=== PATIENT | female | born 1985 ===

== ENCOUNTER → 2018-06-05 19:45 | Outpatient (CLI) | payer MEDICAID ==
[~2018-06-05 19:45] MED LIST: BUPRENORPHINE HC8 MG PO; PRENAVITE1 TAB PO; XANAX XR2 MG PO; ZOLOFT50 MG PO
[2018-06-05 20:37] LABS: HEMOGLOBIN 13.7 g/dL (12-16); MCH 31.4 pg (26.0-34.0); MCHC 34.3 g/dL (31.0-37.0); MCV 91.7 fL (80.0-100.0); MEAN PLATELET VOLUME 11.2 fL (7.4-10.4); RBC 4.36 10x6/uL (4.00-5.40); RDW 12.7 % (11.5-14.5); WBC 9.6 10x3/uL (4.8-10.8)
[2018-06-05 20:39] LABS: UDS - AMPHET NEGATIVE QUAL (NEGATIVE); UDS - BARB NEGATIVE QUAL (NEGATIVE); UDS - BENZO POSITIVE QUAL (NEGATIVE); UDS - COCAINE NEGATIVE QUAL (NEGATIVE); UDS - OPIATE NEGATIVE QUAL (NEGATIVE); UDS - PCP NEGATIVE QUAL (NEGATIVE); UDS - THC NEGATIVE QUAL (NEGATIVE)
[2018-06-08 12:10] LABS: HGB SOLUBILITY (SICKLE SCREEN) Negative (Negative)
[2018-06-08 15:15] LABS: RUBELLA IGG 2.62 index (Immune >0.99)
[2018-06-09 03:09] LABS: RAPID PLASMA REAGIN Non Reactive (Non Reactive)
[2018-06-09 04:14] LABS: HEPATITIS C ANTIBODY 2.7 S/CO RAT (0.0-0.9)
== END | disposition home or self-care (01) ==
LOC: D.LDO 19:45
PROVIDERS: Obstetrics & Gynecology
DX: O26.893 Other specified pregnancy related conditions, third trimester (principal); Z3A.00 Weeks of gestation of pregnancy not specified

== ENCOUNTER 2018-06-06 01:09 | Inpatient (IN) | payer MEDICAID ==
[~2018-06-06] VITALS: Ht 160 cm; Wt 120.2 kg
[2018-06-06] VITALS (22 sets, daily range): BP systolic 115–173; BP diastolic 64–105
--- NOTE | ~2018-06-06 | MORECARE ---
CASE MANAGEMENT DISCHARGE SUMMARY PATIENT: MOIRA LOGAN UNIT: [id number] ADM DATE: 06/06/18 AGE: 33 : [birth year] SEX: F ROOM/BED: D.2306 AUTHOR: NIKOLAI BERNSTEIN PHYSICIAN: REFERRING PHYSICIAN: RIVAS RINCON MD DATE OF SERVICE: 06/08/18 Discharge Plan Patient Name: MOIRA LOGAN [facility] : 1985 Planned Disposition: Anticipated Discharge Date: Discharge Date: Expected LOS: Initial Reviewer: [email or web address] Initial Review Date: 06/08/2018 Generated: 06/08/18 3:25 pm Patient Name: MOIRA LOGAN Page [id number] at 1425 All edits/amendments must be made on the electronic document DICTATION DATE: 06/08/18 142 HAND WINDER: JUDY 06/08/18 1425 RPT#: [id number] DC DATE: STATUS: ADM IN [facility] [address] [place] [address] END OF REPORT
--- NOTE | ~2018-06-06 | OP ---
PATIENT NAME: MOIRA LOGAN MEDICAL RECORD: [id number] :87 LOCATION:D[facility] D.2306 ADMISSION DATE:06/06/18 SURGEON: GRAYSON RINCON MD DATE OF OPERATION: 06/06/2018 PREOPERATIVE DIAGNOSES: 1. Spontaneous rupture of membrane at 37 weeks and 4 days. 2. Prolapsed cord. 3. Noncompliance. 4. Obesity. 5. Smoking. POSTOPERATIVE DIAGNOSES: 1. Spontaneous rupture of membrane at 37 weeks and 4 days. 2. Prolapsed cord. 3. Noncompliance. 4. Obesity. 5. Smoking. 6. Breech presentation. 7. Hypoxia. PROCEDURE: section with breech extraction. SURGEON: Grayson Rincon MD WINE MANAGER: Sylvester Walsh. ANESTHESIA: General. FINDINGS: Viable female in the breech presentation, Apgars were 8 and 9, weight 6 pounds 1 ounce. Uterus, ovaries, and tubes were unremarkable. SPECIMENS REMOVED: Placenta. SPECIMEN DISPOSITION: Discarded. ESTIMATED BLOOD LOSS: 800 cc. FLUIDS: 1700 cc lactated Ringer's. URINE OUTPUT: 700 cc of clear urine (cath placed post-procedure). DRAINS: Posey to gravity. COMPLICATIONS: Hypoxia. INDICATIONS: The patient is a 33-year-old G4, para 1-2-0-3 at 37 weeks and 4 days by her history of an EDC of 06/20/2018, who presented to triage with complaints of rupture of membrane. The patient was evaluated and found to have prolapsing cord. The patient was verbally consented and urgently placed in the operating room for stat . The patient's history complicated by anxiety with 2 mg of Xanax used q.6 hours and use of Suboxone. DESCRIPTION OF PROCEDURE: After verbal consent was given, the patient was taken to the operating room where rapid sequence induction anesthetic was obtained. OPERATIVE REPORT [id number] MOIRA LOGAN The patient has been prepped prior to this and a low transverse incision was made on the abdomen upon release from anesthesia. This incision was carried down to the underlying layer of the fascia and the abdomen was opened using a Pelosi technique. The bladder blade was placed into the lower pelvis. A low transverse hysterotomy was performed and the infant was delivered onto the abdomen. Cord was doubly clamped and cut and the infant was passed to the attendant. The placenta was delivered via Crede maneuver. Uterus exteriorized, cleared of all clot and debris and closed with a running lock stitch of Vicryl. A chromic stitch was used to obtain hemostasis at the right corner with the nvshtw-ak-gnncd. The uterus was returned to the abdomen. The pelvis was irrigated and irrigant removed. The count after the procedure began confirms all sponges accounted for and the fascia was closed prior to the x-ray being performed. The subcutaneous tissue is inspected, 2 large vessels were encountered and both were controlled with a stitch. The subcutaneous space is now reapproximated with plain gut and the skin reapproximated with pallavi. Sterile dressing is applied. X-ray is performed with initial pipe fitter maintenance looking pipe fitter maintenance film without any presence of foreign body. Official read confirms no retained sponges or instruments. The patient did have hypoxia during the procedure with a pulse ox as low as 87%. The patient did receive albuterol and terbutaline during the procedure and the sats after the completion of the procedure were back up to acceptable ranges. The patient will be transferred to the ICU and pulmonary consult has been obtained. TRANSINT:[id number] Voice Confirmation ID: [id number] DOCUMENT ID: [id number] GRAYSON RINCON MD at 1039 CC: [id number] DICTATION DATE: 06/06/18342 CHILDREN'S TUTOR: 06/06/18 0448 ADM IN [facility] [address] [place] [address]
--- NOTE | ~2018-06-06 | MORECARE ---
CASE MANAGEMENT DISCHARGE SUMMARY PATIENT: MOIRA LOGAN UNIT: [id number] ADM DATE: 06/06/18 AGE: 33 : 86 SEX: F ROOM/BED: D.2306 AUTHOR: NIKOLAI BERNSTEIN PHYSICIAN: REFERRING PHYSICIAN: RIVAS RINCON MD DATE OF SERVICE: 06/08/18 Discharge Plan Patient Name: MOIRA LOGAN Facility: [facility]:[place] : 1985 Planned Disposition: Home Anticipated Discharge Date: Discharge Date: Expected LOS: Initial Reviewer: [email or web address] Initial Review Date: 06/08/2018 Generated: 06/08/18 6:37 pm Comments DCP- Discharge Planning Updated by [email or web address]: Jerri Chaudhari on 06/08/18 1:[address] CM attempted to visit with patient for discharge planning. Patient is currently on vent and sedated. No contacts listed on face sheet. No family available. CM will continue to follow and assist with discharge planning / needs. DCPIA - Discharge Planning Initial Assessment Updated by [email or web address]: Jerri Chaudhari on 06/08/18 5:31 pm * Is the patient Alert and Oriented? No * PCP DR. BROOKS IN [place] * Pharmacy [facility] * Preadmission Environment Home with Family * ADLs Independent * Equipment None * List name and contact numbers for known caregivers / representatives who currently or will assist patient after discharge: GERMAN PIERCE [facility] [phone] ZELALEM AWAIS [facility] [phone] * Verbal permission to speak to the caregivers and representatives has been obtained from the patient. N/A * Community resources currently utilized None * Additional services required to return to the preadmission environment? No * Can the patient safely return to the preadmission environment? Yes * Has this patient been hospitalized within the prior 30 days at any hospital? No Last DP export: 06/08/18 4:30 Patient Name: MOIRA LOGAN Page [id number] at 1739 All edits/amendments must be made on the electronic document DICTATION DATE: 06/08/18 173 A P MECHANIC: JUDY 06/08/18 1737 RPT#: [id number] DC DATE: STATUS: ADM IN [facility] [address] [place] [address] END OF REPORT
--- NOTE | ~2018-06-06 | MORECARE ---
CASE MANAGEMENT DISCHARGE SUMMARY PATIENT: MOIRA LOGAN UNIT: [id number] ADM DATE: 06/06/18 AGE: 33 : 86 SEX: F ROOM/BED: D.1205 AUTHOR: DAY,DOC PHYSICIAN: REFERRING PHYSICIAN: GRAYSON RINCON MD DATE OF SERVICE: 06/15/18 Discharge Plan Patient Name: MOIRA LOGAN Facility: [facility]:[place] : 1985 Planned Disposition: Home Anticipated Discharge Date: Discharge Date: 06/12/2018 Expected LOS: Initial Reviewer: [email or web address] Initial Review Date: 06/08/2018 Generated: 06/15/18 11:22 am Comments DCP- Discharge Planning Updated by [email or web address]: Jerri Chaudhari on 06/08/18 4:[address] Patient Name: MOIRA LOGAN Admission Status: Elective Accout number: [id number] Admission Date: 06-06-2018 : 1985 Admission Diagnosis: Attending: Grayson Rincon Current LOS: 2 Anticipated DC Date: Planned Disposition: Home Primary Insurance: MEDICAID [place] Discharge Planning Comments: CM MET WITH PATIENT FATHER, GERMAN PIERCE AND ZELALEM ERNANDEZ THE FOB. PATIENT IS CURRENTLY ON VENT AND SEDATED AT THIS TIME. FAMILY WAS ABLE TO ANSWER HEALTHCARE QUESTIONS. CM WILL TRY TO GET INFORMATION REGARDING PATIENT HISTORY FROM HER PCP AND GET MEDICATION LIST. PLAN IS FOR PATIENT TO GO HOME WITH FOB AND INFANT AT DISCHARGE. CM WILL CONTINUE TO FOLLOW AND ASSIST WITH DISCHARGE PLANNING / NEEDS. Shoemaker Custom: Jerri Chaudhari DCP- Discharge Planning Updated by [email or web address]: Jerri Chaudhari on 06/08/18 1:[address] CM attempted to visit with patient for discharge planning. Patient is currently on vent and sedated. No contacts listed on face sheet. No family available. CM will continue to follow and assist with discharge planning / needs. DCPIA - Discharge Planning Initial Assessment Updated by [email or web address]: Jerri Chaudhari on 06/08/18 5:31 pm * Is the patient Alert and Oriented? No * PCP DR. BROOKS IN [place] * Pharmacy [facility] * Preadmission Environment Home with Family * ADLs Independent * Equipment None * List name and contact numbers for known caregivers / representatives who currently or will assist patient after discharge: GERMAN PIERCE - [facility] - [phone] ZELALEM ERNANDEZ FOB [phone] * Verbal permission to speak to the caregivers and representatives has been obtained from the patient. N/A * Community resources currently utilized None * Additional services required to return to the preadmission environment? No * Can the patient safely return to the preadmission environment? Yes * Has this patient been hospitalized within the prior 30 days at any hospital? No Last DP export: 06/08/18 4:52 Patient Name: MOIRA LOGAN Page 17241 at 1022 All edits/amendments must be made on the electronic document DICTATION DATE: 06/15/18 1022 MIX HOUSE OPERATOR: JUDY 06/15/18 1022 RPT#: [id number] DC DATE:06/12/18 STATUS: DIS IN [facility] [address] [place] [address] END OF REPORT
--- NOTE | ~2018-06-06 | MORECARE ---
CASE MANAGEMENT DISCHARGE SUMMARY PATIENT: MOIRA LOGAN UNIT: [id number] ADM DATE: 06/06/18 AGE: 33 : [birth year] SEX: F ROOM/BED: D.2306 AUTHOR: NIKOLAI BERNSTEIN PHYSICIAN: REFERRING PHYSICIAN: RIVAS RINCON MD DATE OF SERVICE: 06/08/18 Discharge Plan Patient Name: MOIRA LOGAN Facility: [facility]:[place] : 1985 Planned Disposition: Anticipated Discharge Date: Discharge Date: Expected LOS: Initial Reviewer: [email or web address] Initial Review Date: 06/08/2018 Generated: 06/08/18 3:33 pm Comments DCP- Discharge Planning Updated by [email or web address]: Jerri Chaudhari on 06/08/18 1:[address] CM attempted to visit with patient for discharge planning. Patient is currently on vent and sedated. No contacts listed on face sheet. No family available. CM will continue to follow and assist with discharge planning / needs. Last DP export: 06/08/18 1:25 Patient Name: MOIRA LOGAN Page 50115 at 1433 All edits/amendments must be made on the electronic document DICTATION DATE: 06/08/181431 AUTO DAMAGE ADJUSTER: JUDY 06/08/181431 RPT#: [id number] DC DATE: STATUS: ADM IN [facility] [address] [place] [address] END OF REPORT
--- NOTE | ~2018-06-06 | MORECARE ---
CASE MANAGEMENT DISCHARGE SUMMARY PATIENT: MOIRA LOGAN UNIT: [id number] ADM DATE: 06/06/18 AGE: 33 : [birth year] SEX: F ROOM/BED: D.2306 AUTHOR: DAY,DOC PHYSICIAN: REFERRING PHYSICIAN: GRAYSON RINCON MD DATE OF SERVICE: 06/08/18 Discharge Plan Patient Name: MOIRA LOGAN Facility: [facility]:[place] : 1985 Planned Disposition: Home Anticipated Discharge Date: Discharge Date: Expected LOS: Initial Reviewer: [email or web address] Initial Review Date: 06/08/2018 Generated: 06/08/18 6:52 pm Comments DCP- Discharge Planning Updated by [email or web address]: Jerri Chaudhari on 06/08/18 4:[address] Patient Name: MOIRA LOGAN Admission Status: Elective Accout number: [id number] Admission Date: 06-06-2018 : 1985 Admission Diagnosis: Attending: Grayson Rincon Current LOS: 2 Anticipated DC Date: Planned Disposition: Home Primary Insurance: MEDICAID [place] Discharge Planning Comments: CM MET WITH PATIENT FATHER, GERMAN PIERCE AND ZELALEM ERNANDEZ THE FOB. PATIENT IS CURRENTLY ON VENT AND SEDATED AT THIS TIME. FAMILY WAS ABLE TO ANSWER HEALTHCARE QUESTIONS. CM WILL TRY TO GET INFORMATION REGARDING PATIENT HISTORY FROM HER PCP AND GET MEDICATION LIST. PLAN IS FOR PATIENT TO GO HOME WITH FOB AND AT DISCHARGE. CM WILL CONTINUE TO FOLLOW AND ASSIST WITH DISCHARGE PLANNING / NEEDS. Hospital Orderly: Jerri Chaudhari DCP- Discharge Planning Updated by [email or web address]: Jerri Chaudhari on 06/08/18 1:[address] CM attempted to visit with patient for discharge planning. Patient is currently on vent and sedated. No contacts listed on face sheet. No family available. CM will continue to follow and assist with discharge planning / needs. DCPIA - Discharge Planning Initial Assessment Updated by [email or web address]: Jerri Chaudhari on 06/08/18 5:31 pm * Is the patient Alert and Oriented? No * PCP DR. BROOKS IN [place] * Pharmacy [facility] * Preadmission Environment Home with Family * ADLs Independent * Equipment None * List name and contact numbers for known caregivers / representatives who currently or will assist patient after discharge: GERMAN PIERCE - FATHER - [phone] ZELALEM ERNANDEZ FOB [phone] * Verbal permission to speak to the caregivers and representatives has been obtained from the patient. N/A * Community resources currently utilized None * Additional services required to return to the preadmission environment? No * Can the patient safely return to the preadmission environment? Yes * Has this patient been hospitalized within the prior 30 days at any hospital? No Last DP export: 06/08/18 4:37 Patient Name: MOIRA LOGAN Page [phone] at 1752 All edits/amendments must be made on the electronic document DICTATION DATE: 06/08/181750 TRAFFIC CONTROL OPERATOR: JUDY 06/08/181750 RPT#: [id number] DC DATE: STATUS: ADM IN [facility] [address] [place] [address] END OF REPORT
--- NOTE | ~2018-06-06 | MORECARE ---
CASE MANAGEMENT DISCHARGE SUMMARY PATIENT: MOIRA LOGAN UNIT: [id number] ADM DATE: 06/06/18 AGE: 33 : [birth year] SEX: F ROOM/BED: D.2306 AUTHOR: NIKOLAI BERNSTEIN PHYSICIAN: REFERRING PHYSICIAN: RIVAS RINCON MD DATE OF SERVICE: 06/08/18 Discharge Plan Patient Name: MOIRA LOGAN Facility: [facility]:[place] : 1985 Planned Disposition: Home Anticipated Discharge Date: Discharge Date: Expected LOS: Initial Reviewer: [email or web address] Initial Review Date: 06/08/2018 Generated: 06/08/18 6:30 pm Comments DCP- Discharge Planning Updated by [email or web address]: Jerri Chaudhari on 06/08/18 1:[address] CM attempted to visit with patient for discharge planning. Patient is currently on vent and sedated. No contacts listed on face sheet. No family available. CM will continue to follow and assist with discharge planning / needs. Last DP export: 06/08/18 1:33 Patient Name: MOIRA LOGAN Page 95970 at 1730 All edits/amendments must be made on the electronic document DICTATION DATE: 06/08/181728 GAMING CAGE WORKER: JUDY 06/08/181728 RPT#: [id number] DC DATE: STATUS: ADM IN [facility] [address] [place] [address] END OF REPORT
--- NOTE | ~2018-06-06 | DS ---
PATIENT:MOIRA LOGAN :[birth year] MEDICAL RECORD: [id number] DISCHARGE SUMMARY ADMISSION DATE: 06/06/18 DISCHARGE DATE: 06/12/18 DATE OF ADMISSION: 06/06/2018 DATE OF DISCHARGE: 06/12/2018 ADMISSION DIAGNOSES: 1. Morbid obesity. 2. History of drug addiction. 3. Poor care. 4. Spontaneous rupture of membrane at 37 weeks with cord prolapse. DISCHARGE DIAGNOSES: 1. Morbid obesity. 2. History of drug addiction. 3. Poor care. 4. Spontaneous rupture of membrane at 37 weeks with cord prolapse. 5. Breech presentation. 6. Pneumonia. 7. Anxiety. PROCEDURE PERFORMED WHILE HOSPITALIZED: Primary low transverse section with breech extraction. ADMITTING PHYSICIAN: Dr. Phillips. CONSULTS: Pulmonary medicine. HISTORY OF PRESENT ILLNESS AND INDICATION FOR HOSPITALIZATION: See the H&P in the chart. SUMMARY OF HOSPITALIZATION: The patient was admitted the territory sales representative hours of the and underwent emergency . Infant was delivered, viable, and sent to nursery. During that procedure and after rapid sequence induction was completed, her pulse oximetries were noted to be in the upper 80s. The patient was able to obtain a near 100% oxygenation after aggressive respiratory treatment by anesthesia. Pulmonary medicine was consulted and the patient had been sent to the ICU. The patient was diagnosed with pneumonia and remained intubated for the course of the first 4 days in the hospital. The patient was extubated and eventually sent to the floor. At the time of discharge, the incision was clean, dry and intact. There is no obstetrical or postoperative concerns. DISPOSITION: The patient will be discharged on medicines per pulmonary consultation and pain management through OB. The pain medications include Percocet and ibuprofen. The patient does have a history of anxiety and I have given enough medicine to last until Friday until primary care physician has been prescribing Xanax and Subutex for this patient and a [place] period can be reached. TRANSINT:[id number] Voice Confirmation ID: [id number] DOCUMENT ID: [id number] DISCHARGE SUMMARY REPORT [id number] MOIRA LOGAN,RIVAS Ling MD at 1038 CC: [id number] DICTATION DATE: 06/12/18 1507 OPTICAL LABORATORY MECHANIC: 06/13/18 0500 DIS IN 06/12/18 [facility] [address] [facility] [place] [address]
[2018-06-06 09:09] LABS: BASOPHILS 0.1 % (0-2); EOSINOPHILS 0.1 % (0-7); HEMATOCRIT 33.3 % (36.0-48.0); HEMOGLOBIN 11.2 g/dL (12-16); IMMATURE GRANULOCYTES 0.2 % (0-5); LYMPHOCYTES 12.7 % (15-50); MCH 30.6 pg (26.0-34.0); MCHC 33.6 g/dL (31.0-37.0); MEAN PLATELET VOLUME 10.3 fL (7.4-10.4); MONOCYTES 7.9 % (2-11); PLATELET COUNT 197 10x3/uL (130-400); RBC 3.66 10x6/uL (4.00-5.40)
[2018-06-06 09:12] LABS: WBC 12.2 10x3/uL (4.8-10.8)
[2018-06-06 09:28] LABS: ALBUMIN 1.7 g/dL (3.4-5.0); ALKALINE PHOSPHATASE 96 U/L (46-116); ALT (SGPT) 12 U/L (10-68); BILIRUBIN - TOTAL 0.18 mg/dL (0.2-1.3); CALC OSMOLALITY 273 mosm/kg (275-300); CALCIUM 8.1 mg/dL (8.5-10.1); CHLORIDE - SERUM 104 mmol/L (98-107); CREATININE - SERUM 0.5 mg/dL (0.6-1.3); GLUCOSE 102 mg/dL (74-106); MAGNESIUM - SERUM 1.2 mg/dL (1.8-2.4); PHOSPHOROUS 3.5 mg/dL (2.5-4.9); POTASSIUM - SERUM 4.2 mmol/L (3.5-5.1); PROTEIN - SERUM 5.5 g/dL (6.4-8.2); SODIUM 136 mmol/L (136-145); UREA NITROGEN 17 mg/dL (7-18); eGFR NON AFRICAN AMERICAN > 90 mL/min (90-120)
[2018-06-06 09:29] LABS: PRO BNP 5 pg/mL (0-125)
[2018-06-07] VITALS (24 sets, daily range): BP systolic 98–143; BP diastolic 56–95
[2018-06-07 03:13] LABS: BASOPHILS 0.1 % (0-2); EOSINOPHILS 0.7 % (0-7); HEMOGLOBIN 9.8 g/dL (12-16); IMMATURE GRANULOCYTES 0.1 % (0-5); LYMPHOCYTES 23.6 % (15-50); MCH 30.8 pg (26.0-34.0); MCHC 33.8 g/dL (31.0-37.0); MCV 91.2 fL (80.0-100.0); MEAN PLATELET VOLUME 10.6 fL (7.4-10.4); MONOCYTES 8.8 % (2-11); NEUTROPHILS 66.7 % (40-80); PLATELET COUNT 161 10x3/uL (130-400); RBC 3.18 10x6/uL (4.00-5.40); RDW 13.1 % (11.5-14.5)
[2018-06-07 03:19] LABS: WBC 8.3 10x3/uL (4.8-10.8)
[2018-06-07 03:26] LABS: UDS - AMPHET NEGATIVE QUAL (NEGATIVE); UDS - BARB NEGATIVE QUAL (NEGATIVE); UDS - BENZO POSITIVE QUAL (NEGATIVE); UDS - COCAINE NEGATIVE QUAL (NEGATIVE); UDS - OPIATE POSITIVE QUAL (NEGATIVE); UDS - PCP NEGATIVE QUAL (NEGATIVE); UDS - THC NEGATIVE QUAL (NEGATIVE)
[2018-06-08] VITALS (24 sets, daily range): BP systolic 86–138; BP diastolic 41–90; Ht 160 cm; Wt 120.2 kg
[2018-06-08 03:38] LABS: BASOPHILS 0.1 % (0-2); EOSINOPHILS 0 % (0-7); HEMATOCRIT 25.9 % (36.0-48.0); HEMOGLOBIN 8.6 g/dL (12-16); IMMATURE GRANULOCYTES 0.3 % (0-5); LYMPHOCYTES 7.9 % (15-50); MCH 30.3 pg (26.0-34.0); MCHC 33.2 g/dL (31.0-37.0); MCV 91.2 fL (80.0-100.0); MEAN PLATELET VOLUME 10.4 fL (7.4-10.4); MONOCYTES 3.8 % (2-11); NEUTROPHILS 87.9 % (40-80); PLATELET COUNT 185 10x3/uL (130-400); RBC 2.84 10x6/uL (4.00-5.40); RDW 13.3 % (11.5-14.5); WBC 9.4 10x3/uL (4.8-10.8)
[2018-06-09] VITALS (24 sets, daily range): BP systolic 88–132; BP diastolic 51–85
[2018-06-09 03:43] LABS: BASOPHILS 0.3 % (0-2); EOSINOPHILS 2.3 % (0-7); HEMATOCRIT 24.8 % (36.0-48.0); HEMOGLOBIN 8.1 g/dL (12-16); IMMATURE GRANULOCYTES 0.5 % (0-5); LYMPHOCYTES 25.3 % (15-50); MCH 30.2 pg (26.0-34.0); MCHC 32.7 g/dL (31.0-37.0); MCV 92.5 fL (80.0-100.0); MEAN PLATELET VOLUME 10.2 fL (7.4-10.4); MONOCYTES 6.1 % (2-11); NEUTROPHILS 65.5 % (40-80); PLATELET COUNT 197 10x3/uL (130-400); RBC 2.68 10x6/uL (4.00-5.40); RDW 13.8 % (11.5-14.5)
[2018-06-09 03:55] LABS: CALC OSMOLALITY 279 mosm/kg (275-300); CALCIUM 7.8 mg/dL (8.5-10.1); CARBON DIOXIDE 26.2 mmol/L (21.0-32.0); CHLORIDE - SERUM 105 mmol/L (98-107); CREATININE - SERUM 0.5 mg/dL (0.6-1.3); GLUCOSE 91 mg/dL (74-106); MAGNESIUM - SERUM 1.5 mg/dL (1.8-2.4); POTASSIUM - SERUM 3.5 mmol/L (3.5-5.1); SODIUM 141 mmol/L (136-145); UREA NITROGEN 10 mg/dL (7-18); eGFR NON AFRICAN AMERICAN > 90 mL/min (90-120)
[2018-06-09 07:25] LABS: IMMUNOGLOBULIN A 170 mg/dL (87-352)
[2018-06-09 15:33] LABS: ACID FAST SMEAR Negative (()); AFB SPECIMEN PROCESSING Concentration (())
[2018-06-10] VITALS (18 sets, daily range): BP systolic 93–168; BP diastolic 40–92
[2018-06-10 04:24] LABS: BASOPHILS 0.2 % (0-2); EOSINOPHILS 0.5 % (0-7); HEMATOCRIT 28.2 % (36.0-48.0); HEMOGLOBIN 9.5 g/dL (12-16); IMMATURE GRANULOCYTES 0.5 % (0-5); LYMPHOCYTES 8.5 % (15-50); MCH 30.9 pg (26.0-34.0); MCHC 33.7 g/dL (31.0-37.0); MCV 91.9 fL (80.0-100.0); MEAN PLATELET VOLUME 10.9 fL (7.4-10.4); MONOCYTES 5.8 % (2-11); NEUTROPHILS 84.5 % (40-80); RBC 3.07 10x6/uL (4.00-5.40); RDW 13.8 % (11.5-14.5)
[2018-06-10 04:36] LABS: CALC OSMOLALITY 284 mosm/kg (275-300); CARBON DIOXIDE 26.5 mmol/L (21.0-32.0); CHLORIDE - SERUM 107 mmol/L (98-107); CREATININE - SERUM 0.5 mg/dL (0.6-1.3); GLUCOSE 98 mg/dL (74-106); MAGNESIUM - SERUM 1.6 mg/dL (1.8-2.4); SODIUM 143 mmol/L (136-145); UREA NITROGEN 12 mg/dL (7-18); eGFR NON AFRICAN AMERICAN > 90 mL/min (90-120)
[2018-06-10 04:38] LABS: POTASSIUM - SERUM 4.5 mmol/L (3.5-5.1)
[2018-06-10 04:41] LABS: PLATELET COUNT 248 10x3/uL (130-400); WBC 10.9 10x3/uL (4.8-10.8)
[2018-06-10 07:08] LABS: CKMB 5.3 U/L (0.0-3.6)
[2018-06-10 07:12] LABS: CREATINE KINASE 867 UL (21-215); TROPONIN-I < 0.017 ng/mL (0.000-0.060)
[2018-06-10 12:01] LABS: CKMB 3.5 U/L (0.0-3.6); CREATINE KINASE 709 UL (21-215); TROPONIN-I 0.022 ng/mL (0.000-0.060)
[2018-06-10 13:19] LABS: FUNGUS STAIN Final report (())
[2018-06-10 17:31] LABS: CKMB 2.7 U/L (0.0-3.6); CREATINE KINASE 555 UL (21-215); TROPONIN-I 0.045 ng/mL (0.000-0.060)
[2018-06-11 00:58] VITALS: BP 115/74
[2018-06-11 04:00] VITALS: BP 116/58
[2018-06-11 05:46] LABS: BASOPHILS 0.2 % (0-2); EOSINOPHILS 2.4 % (0-7); HEMATOCRIT 29.6 % (36.0-48.0); HEMOGLOBIN 9.8 g/dL (12-16); IMMATURE GRANULOCYTES 1.2 % (0-5); MCH 30.2 pg (26.0-34.0); MCHC 33.1 g/dL (31.0-37.0); MCV 91.1 fL (80.0-100.0); MEAN PLATELET VOLUME 9.9 fL (7.4-10.4); MONOCYTES 7.6 % (2-11); NEUTROPHILS 72.6 % (40-80); PLATELET COUNT 272 10x3/uL (130-400); RBC 3.25 10x6/uL (4.00-5.40); RDW 13.3 % (11.5-14.5)
[2018-06-11 05:54] LABS: WBC 8.1 10x3/uL (4.8-10.8)
[2018-06-11 06:31] LABS: CALC OSMOLALITY 283 mosm/kg (275-300); CALCIUM 7.6 mg/dL (8.5-10.1); CARBON DIOXIDE 24.8 mmol/L (21.0-32.0); CHLORIDE - SERUM 106 mmol/L (98-107); CREATININE - SERUM 0.5 mg/dL (0.6-1.3); GLUCOSE 90 mg/dL (74-106); MAGNESIUM - SERUM 1.6 mg/dL (1.8-2.4); SODIUM 142 mmol/L (136-145); UREA NITROGEN 15 mg/dL (7-18); eGFR NON AFRICAN AMERICAN > 90 mL/min (90-120)
[2018-06-11 06:32] LABS: POTASSIUM - SERUM 3.6 mmol/L (3.5-5.1)
[2018-06-11 08:15] VITALS: BP 150/78
[2018-06-11 11:31] VITALS: BP 146/75
[2018-06-11 20:09] LABS: IGG SUBCLASS 1 539 mg/dL (248-810); IGG SUBCLASS 2 194 mg/dL (130-555); IGG SUBCLASS 3 43 mg/dL (15-102); IGG SUBCLASS 4 55 mg/dL (2-96); IMMUNOGLOBULIN G 978 mg/dL (700-1600)
[2018-06-12 03:10] LABS: IMMUNOGLOBULIN E 465 IU/mL (0-100)
[2018-06-12 04:33] LABS: BASOPHILS 0.2 % (0-2); EOSINOPHILS 0.6 % (0-7); HEMATOCRIT 30.2 % (36.0-48.0); HEMOGLOBIN 10.1 g/dL (12-16); IMMATURE GRANULOCYTES 2.4 % (0-5); MCH 30.6 pg (26.0-34.0); MCHC 33.4 g/dL (31.0-37.0); MCV 91.5 fL (80.0-100.0); NEUTROPHILS 75.8 % (40-80); RDW 12.9 % (11.5-14.5); WBC 8.8 10x3/uL (4.8-10.8)
[2018-06-12 04:34] LABS: CALC OSMOLALITY 283 mosm/kg (275-300); CALCIUM 8.2 mg/dL (8.5-10.1); CARBON DIOXIDE 25.3 mmol/L (21.0-32.0); CHLORIDE - SERUM 105 mmol/L (98-107); CREATININE - SERUM 0.6 mg/dL (0.6-1.3); GLUCOSE 167 mg/dL (74-106); MAGNESIUM - SERUM 1.5 mg/dL (1.8-2.4); PLATELET COUNT 169 10x3/uL (130-400); SODIUM 140 mmol/L (136-145); UREA NITROGEN 16 mg/dL (7-18); eGFR NON AFRICAN AMERICAN > 90 mL/min (90-120)
[2018-06-12 07:51] VITALS: BP 145/77
[2018-06-12 11:32] VITALS: BP 134/79
[2018-06-12] MEDS ORDERED: DOXYCYCLINE HY100 M2 PO (14:43)
[2018-06-12] MEDS ORDERED: PERCOCET 7.5/321 TAB PO (15:46)
[2018-06-12] MEDS ORDERED: IBUPROFEN800 MG PO (15:47)
[2018-06-12] MEDS ORDERED: XANAX1 MG PO (15:48)
[2018-06-15 11:13] LABS: FUNGUS CULTURE RESULT 1 Candida albicans (()); FUNGUS MYCOLOGY CULTURE Preliminary report (())
== END 2018-06-12 17:40 | disposition home or self-care (01) | DRG 786 ==
LOC: D.LDO 01:09 → D.ICU 01:47 → D.LD 01:47 → D.ICU 01:47 → D.M3 06-10 17:29
PROVIDERS: Family Medicine; Internal Medicine Pulmonary Disease; Obstetrics & Gynecology
PROC: 0B9B8ZZ Drainage of Left Lower Lobe Bronchus, Via Natural or Artificial Opening Endoscopic (ICD-10-PCS; 2018-06-06)
PROC: 0B968ZZ Drainage of Right Lower Lobe Bronchus, Via Natural or Artificial Opening Endoscopic (ICD-10-PCS; 2018-06-06)
PROC: 5A1955Z Respiratory Ventilation, Greater than 96 Consecutive Hours (ICD-10-PCS; 2018-06-06)
PROC: 10D00Z1 Extraction of Products of Conception, Low, Open Approach (ICD-10-PCS; principal; 2018-06-06 01:50)
DX: O69.0XX0 Labor and delivery complicated by prolapse of cord, not applicable or unspecified (principal); J18.9 Pneumonia, unspecified organism; J96.01 Acute respiratory failure with hypoxia; J96.02 Acute respiratory failure with hypercapnia; J45.901 Unspecified asthma with (acute) exacerbation; J98.11 Atelectasis; J91.8 Pleural effusion in other conditions classified elsewhere; O32.1XX0 Maternal care for breech presentation, not applicable or unspecified; Z3A.37 37 weeks gestation of pregnancy; Z37.0 Single live birth; O99.334 Smoking (tobacco) complicating childbirth; O99.214 Obesity complicating childbirth; Z91.14 Patient's other noncompliance with medication regimen; O75.89 Other specified complications of labor and delivery; O99.02 Anemia complicating childbirth; O16.4 Unspecified maternal hypertension, complicating childbirth; K21.9 Gastro-esophageal reflux disease without esophagitis; E83.42 Hypomagnesemia